=== PATIENT | male | born 1950 | race Caucasian/White ===

== ENCOUNTER 2022-04-03 15:20 | Inpatient (IN) | payer OTHER ==
[~2022-04-03] VITALS: Ht 182.9 cm; Wt 96.6 kg
[2022-04-03 16:10] LABS: Hematocrit 34.4 % (41.0-53.0); Hemoglobin 11.4 g/dL (13.5-17.5); Mean Corpuscular Hemoglobin 29.9 pg (28.0-32.0); Mean Corpuscular Hgb Conc. 33.1 g/dL (32.0-36.0); Mean Corpuscular Volume 90.4 fL (80.0-100.0); Red Blood Cells 3.81 10^6/uL (4.5-5.90)
[2022-04-03 16:15] LABS: Basophils % (manual) 0 (0.0-2.0); Blast Cells 0; Myelocytes % 0; Promyelocytes % 0; Reactive Lymphocytes 0
[2022-04-03 16:23] LABS: Albumin 3.1 g/dL (3.4-5.0); Calcium 9.1 mg/dL (8.5-10.1); Potassium 3.6 mmol/L (3.5-5.1)
[2022-04-03 16:31] LABS: BUN/Creatinine Ratio 17.4; Total Protein 7.5 g/dL (6.4-8.2)
[2022-04-03 16:39] LABS: INR 1.04 (0.9-1.15); Partial Thromboplastin Time 23.1 sec (24.6-33.4)
[2022-04-03 16:48] LABS: Band Neutrophils % (manual) 8; Eosinophils % (manual) 2 (0-7); Lymphocytes % (manual) 6 (10.0-50.0); Metamyelocytes % 1; Monocytes % (manual) 4 (0-12)
[2022-04-03] MEDS ORDERED: SODIUM CHLORIDE 0.9% 1,000 ML IV ONE (19:00)
[2022-04-03] MEDS ORDERED: HYDROmorphone HCL 2 MG/ML VL/or syr IV ONE (19:00)
[2022-04-03] MEDS ORDERED: METOCLOPRAMIDE HCL 5MG/ml INJ 2ml VIAL IV ONE (19:00)
[2022-04-03] MEDS ORDERED: SODIUM CHLORIDE 0.9% 500 ML IVB ONE (19:00)
[2022-04-03 19:17] LABS: Hematocrit 31.5 % (41.0-53.0); Hemoglobin 10.4 g/dL (13.5-17.5); Mean Corpuscular Hemoglobin 29.6 pg (28.0-32.0); Mean Corpuscular Volume 89.9 fL (80.0-100.0); Red Blood Cells 3.51 10^6/uL (4.5-5.90); Red Cell Distribution Width 14.8 % (11.8-14.3); White Blood Cell 15.1 10^3/uL (4.4-10.8)
[2022-04-03 19:20] LABS: Basophils % (manual) 0 (0.0-2.0); Blast Cells 0; Metamyelocytes % 0; Myelocytes % 0; Promyelocytes % 0; Reactive Lymphocytes 0
[2022-04-03 19:24] LABS: Albumin 2.9 g/dL (3.4-5.0); Calcium 8.7 mg/dL (8.5-10.1); Magnesium 1.6 mg/dL (1.6-2.6); Potassium 3.1 mmol/L (3.5-5.1)
[2022-04-03 19:25] LABS: INR 1.07 (0.9-1.15); Partial Thromboplastin Time 24.8 sec (24.6-33.4)
[2022-04-03 19:27] LABS: Bilirubin, Total 3.6 mg/dL (0.2-1.0); Total Protein 6.5 g/dL (6.4-8.2)
[2022-04-03 19:33] LABS: BUN/Creatinine Ratio 15.9
[2022-04-03 20:02] LABS: Band Neutrophils % (manual) 12; Eosinophils % (manual) 1 (0-7); Lymphocytes % (manual) 3 (10.0-50.0); Monocytes % (manual) 5 (0-12)
[2022-04-03] MEDS ORDERED: ACETAMINOPHEN 500 MG TAB PO ONE (20:15)
[2022-04-04 01:51] LABS: Urine Bacteria NONE SEEN /hpf (None Seen); Urine Blood Negative /uL (Negative); Urine Hyaline Cast FEW /lpf (0 - 2); Urine Specific Gravity 1.019 (1.001-1.035); Urine WBC 23 /hpf (0 - 3)
[2022-04-04] MEDS ORDERED: HYDROmorphone HCL 2 MG/ML VL/or syr IV ONE (04:15)
[2022-04-04] MEDS ORDERED: HYDROmorphone HCL 2 MG/ML VL/or syr IV PRN (07:30)
[2022-04-04] MEDS ORDERED: DEXTROSE (50%) 50ML SYRG IV PRN (07:30)
[2022-04-04] MEDS ORDERED: IBUPROFEN 600 MG TAB PO PRN (07:30)
[2022-04-04] MEDS ORDERED: ONDANSETRON HCL 4 MG/2 ML VIAL IV PRN (07:30)
[2022-04-04] MEDS ORDERED: ALBUMIN 25% 100 ML IV ONE (07:30)
[2022-04-04] MEDS ORDERED: metroNIDAZOLE 500MG/100ML 100 ML IV ONE (07:30)
[2022-04-04] MEDS ORDERED: DOCUSATE SOD 100 MG CAP PO PRN (07:30)
[2022-04-04] MEDS ORDERED: METOCLOPRAMIDE HCL 5MG/ml INJ 2ml VIAL IV PRN (07:30)
[2022-04-04] MEDS ORDERED: MORPHINE SULFATE INJ 2 MG/ml SYRG IV PRN ×2 (07:30→08:15)
[2022-04-04] MEDS ORDERED: POTASSIUM CHL 20 Meq TABLET PO ONE (07:45)
[2022-04-04] MEDS ORDERED: NITROGLYCERIN 0.4 MG SL TAB SL PRN (08:15)
[2022-04-04] MEDS: SODIUM CHLORIDE 0.9% 1,000 ML IV SCH (08:37)
[2022-04-04 08:38] LABS: Mean Corpuscular Hgb Conc. 33.1 g/dL (32.0-36.0); Red Cell Distribution Width 15.1 % (11.8-14.3)
[2022-04-04 08:41] LABS: Hemoglobin 9.9 g/dL (13.5-17.5); Mean Corpuscular Hemoglobin 29.9 pg (28.0-32.0); Mean Corpuscular Volume 90.3 fL (80.0-100.0); Red Blood Cells 3.32 10^6/uL (4.5-5.90)
[2022-04-04 08:47] LABS: Basophils % (manual) 0 (0.0-2.0); Blast Cells 0; Eosinophils % (manual) 0 (0-7); Promyelocytes % 0; Reactive Lymphocytes 0
[2022-04-04] MEDS ORDERED: cefTRIAXone 1GM/50ML D5W 50 ML IV SCH (09:00)
[2022-04-04 09:09] LABS: Albumin 2.6 g/dL (3.4-5.0); Calcium 8.6 mg/dL (8.5-10.1); Potassium 4.1 mmol/L (3.5-5.1)
[2022-04-04 09:13] LABS: BUN/Creatinine Ratio 18.8; Bilirubin, Total 4.6 mg/dL (0.2-1.0); Total Protein 6.8 g/dL (6.4-8.2)
[2022-04-04] MEDS: FAMOTIDINE (10MG/ML) 2ML VL IV SCH (09:28)
[2022-04-04] MEDS ORDERED: APIXABAN 5 MG TAB PO SCH (10:00)
[2022-04-04] MEDS: MEROPENEM 1GM IVPB 100 ML IV SCH ×2 (10:49→21:58)
[2022-04-04] MEDS: ACCU-CHEK COMFORT CURVE STRIP VI SCH ×3 (12:43→23:30)
[2022-04-04] MEDS: InsuLIN REG 1unit/0.01ml Soln (100units/ml) SC SCH ×3 (12:49→23:32)
[2022-04-04 13:19] VITALS: BP 108/68
[2022-04-04] MEDS ORDERED: metroNIDAZOLE 500MG/100ML 100 ML IV SCH (14:00)
[2022-04-04 15:59] LABS: Band Neutrophils % (manual) 18; Lymphocytes % (manual) 8 (10.0-50.0); Metamyelocytes % 2; Monocytes % (manual) 2 (0-12); Myelocytes % 1
[2022-04-04 16:00] VITALS: BP 117/68
[2022-04-04] MEDS ORDERED: OMEP20TA PO (16:42)
[2022-04-04] MEDS ORDERED: LISI-716 PO (16:42)
[2022-04-04] MEDS ORDERED: METF-370 PO (16:42)
[2022-04-04] MEDS ORDERED: APIX5TAB PO (16:42)
[2022-04-04] MEDS ORDERED: HYDR-4924 PO (18:22)
[2022-04-04] MEDS ORDERED: URSO300C9 PO (18:22)
[2022-04-04 21:49] VITALS: BP 100/38
[2022-04-05] MEDS: SODIUM CHLORIDE 0.9% 1,000 ML IV SCH (00:10)
[2022-04-05] MEDS: ACCU-CHEK COMFORT CURVE STRIP VI SCH ×4 (05:44→23:41)
[2022-04-05] MEDS: InsuLIN REG 1unit/0.01ml Soln (100units/ml) SC SCH ×4 (05:44→23:39)
[2022-04-05 05:46] VITALS: BP 120/65
[2022-04-05 05:49] LABS: Basophils # (auto) 0 10 ^3/uL (0-0.2); Basophils % (auto) 0.1 % (0.0-2.0); Eosinophils # (auto) 0.3 10 ^3/uL (0-0.8); Eosinophils % (auto) 1.5 % (0.0-7.0); Hematocrit 29.3 % (41.0-53.0); Hemoglobin 9.8 g/dL (13.5-17.5); Lymphocytes # (auto) 0.9 10 ^3/uL (0.4-5.4); Lymphocytes % (auto) 4.3 % (10.0-50.0); Mean Corpuscular Hemoglobin 30.3 pg (28.0-32.0); Mean Corpuscular Hgb Conc. 33.3 g/dL (32.0-36.0); Mean Corpuscular Volume 90.8 fL (80.0-100.0); Monocytes # (auto) 0.5 10 ^3/uL (0-1.3); Monocytes % (auto) 2.7 % (0.0-12.0); Neutrophils # (auto) 18.4 10 ^3/uL (1.6-8.6); Neutrophils % (auto) 91.4 % (37.0-80.0); Red Blood Cells 3.23 10^6/uL (4.5-5.90); Red Cell Distribution Width 15.4 % (11.8-14.3); White Blood Cell 20.1 10^3/uL (4.4-10.8)
[2022-04-05 06:09] LABS: Potassium 3.7 mmol/L (3.5-5.1)
[2022-04-05 06:16] LABS: Albumin 2.5 g/dL (3.4-5.0); BUN/Creatinine Ratio 26.7; Calcium 8.6 mg/dL (8.5-10.1); Total Protein 6.5 g/dL (6.4-8.2)
[2022-04-05 08:00] VITALS: BP 129/69
[2022-04-05] MEDS: FAMOTIDINE (10MG/ML) 2ML VL IV SCH (09:42)
[2022-04-05] MEDS: MEROPENEM 1GM IVPB 100 ML IV SCH ×2 (10:38→21:36)
[2022-04-05 12:00] VITALS: BP 121/63
[2022-04-05 16:00] VITALS: BP 124/66
[2022-04-05] MEDS ORDERED: MEROPENEM 1GM IVPB 100 ML IV SCH (19:00)
[2022-04-05] MEDS: APIXABAN 5 MG TAB PO SCH (21:36)
[2022-04-05 22:00] VITALS: BP 131/74
[2022-04-06 05:00] VITALS: BP 128/74
[2022-04-06] MEDS: MEROPENEM 1GM IVPB 100 ML IV SCH ×3 (05:13→21:34)
[2022-04-06] MEDS: InsuLIN REG 1unit/0.01ml Soln (100units/ml) SC SCH ×3 (05:31→18:10)
[2022-04-06] MEDS: ACCU-CHEK COMFORT CURVE STRIP VI SCH ×3 (05:31→17:40)
[2022-04-06 09:00] VITALS: BP 113/64
[2022-04-06] MEDS: FAMOTIDINE (10MG/ML) 2ML VL IV SCH (10:26)
[2022-04-06] MEDS: APIXABAN 5 MG TAB PO SCH ×2 (10:26→21:34)
[2022-04-06] MEDS ORDERED: FUROSEMIDE 20 MG/2 ML VIAL IV ONE (11:30)
[2022-04-06] MEDS ORDERED: FUROSEMIDE 40 MG/4 ML VIAL IV ONE (11:30)
[2022-04-06] MEDS ORDERED: DOXYCYCLINE 100 MG TAB/CAP PO ONE (11:30)
[2022-04-06 13:07] VITALS: BP 127/67
[2022-04-06 13:32] LABS: Basophils # (auto) 0.1 10 ^3/uL (0-0.2); Basophils % (auto) 0.8 % (0.0-2.0); Eosinophils # (auto) 0.3 10 ^3/uL (0-0.8); Eosinophils % (auto) 2.6 % (0.0-7.0); Hematocrit 33.7 % (41.0-53.0); Lymphocytes # (auto) 0.9 10 ^3/uL (0.4-5.4); Lymphocytes % (auto) 7.4 % (10.0-50.0); Mean Corpuscular Hemoglobin 29.8 pg (28.0-32.0); Mean Corpuscular Hgb Conc. 32.6 g/dL (32.0-36.0); Mean Corpuscular Volume 91.2 fL (80.0-100.0); Monocytes # (auto) 0.5 10 ^3/uL (0-1.3); Monocytes % (auto) 3.9 % (0.0-12.0); Neutrophils # (auto) 10.9 10 ^3/uL (1.6-8.6); Neutrophils % (auto) 85.3 % (37.0-80.0); Nucleated Red Blood Cells % 0.1 %; Red Blood Cells 3.69 10^6/uL (4.5-5.90); Red Cell Distribution Width 14.8 % (11.8-14.3); White Blood Cell 12.8 10^3/uL (4.4-10.8)
[2022-04-06 15:20] LABS: Albumin 2.8 g/dL (3.4-5.0); Calcium 8.6 mg/dL (8.5-10.1); Potassium 3.7 mmol/L (3.5-5.1)
[2022-04-06 15:22] LABS: Bilirubin, Total 2.2 mg/dL (0.2-1.0); Total Protein 7.5 g/dL (6.4-8.2)
[2022-04-06 17:00] VITALS: BP 110/55
[2022-04-06 22:00] VITALS: BP 122/67
[2022-04-06] MEDS ORDERED: DOXYCYCLINE 100 MG TAB/CAP PO SCH (22:00)
[2022-04-07] MEDS: ACCU-CHEK COMFORT CURVE STRIP VI SCH ×5 (00:01→23:42)
[2022-04-07] MEDS: InsuLIN REG 1unit/0.01ml Soln (100units/ml) SC SCH ×5 (00:02→23:42)
[2022-04-07 05:00] VITALS: BP 118/69
[2022-04-07] MEDS: MEROPENEM 1GM IVPB 100 ML IV SCH (05:29)
[2022-04-07 09:00] VITALS: BP 115/61
[2022-04-07] MEDS ORDERED: FUROSEMIDE 40 MG/4 ML VIAL IV SCH (10:00)
[2022-04-07] MEDS: APIXABAN 5 MG TAB PO SCH ×2 (10:18→21:05)
[2022-04-07] MEDS: FAMOTIDINE (10MG/ML) 2ML VL IV SCH (10:19)
[2022-04-07] MEDS ORDERED: FUROSEMIDE 20 MG TAB PO ONE (12:15)
[2022-04-07 13:00] VITALS: BP 138/82
[2022-04-07 16:54] VITALS: BP 149/65
[2022-04-07 22:00] VITALS: BP 128/69
[2022-04-08] VITALS (7 sets, daily range): BP systolic 113–131; BP diastolic 64–76
[2022-04-08] MEDS: ACCU-CHEK COMFORT CURVE STRIP VI SCH ×4 (05:13→23:35)
[2022-04-08] MEDS: InsuLIN REG 1unit/0.01ml Soln (100units/ml) SC SCH ×4 (05:13→23:36)
[2022-04-08 06:10] LABS: Basophils # (auto) 0.1 10 ^3/uL (0-0.2); Basophils % (auto) 0.6 % (0.0-2.0); Eosinophils # (auto) 0.5 10 ^3/uL (0-0.8); Eosinophils % (auto) 4.8 % (0.0-7.0); Hematocrit 29.9 % (41.0-53.0); Lymphocytes # (auto) 1.2 10 ^3/uL (0.4-5.4); Lymphocytes % (auto) 12.9 % (10.0-50.0); Mean Corpuscular Hemoglobin 30.5 pg (28.0-32.0); Mean Corpuscular Hgb Conc. 33.5 g/dL (32.0-36.0); Mean Corpuscular Volume 91.1 fL (80.0-100.0); Monocytes # (auto) 1.2 10 ^3/uL (0-1.3); Monocytes % (auto) 12.3 % (0.0-12.0); Neutrophils # (auto) 6.7 10 ^3/uL (1.6-8.6); Neutrophils % (auto) 69.4 % (37.0-80.0); Red Blood Cells 3.28 10^6/uL (4.5-5.90); Red Cell Distribution Width 14.6 % (11.8-14.3); White Blood Cell 9.7 10^3/uL (4.4-10.8)
[2022-04-08 06:25] LABS: Albumin 2.1 g/dL (3.4-5.0); Calcium 8.4 mg/dL (8.5-10.1); Potassium 3.8 mmol/L (3.5-5.1)
[2022-04-08 06:35] LABS: BUN/Creatinine Ratio 20.5; Bilirubin, Total 1.6 mg/dL (0.2-1.0); Total Protein 6.3 g/dL (6.4-8.2)
[2022-04-08] MEDS: FAMOTIDINE (10MG/ML) 2ML VL IV SCH (09:50)
[2022-04-08] MEDS: cefTRIAXone 1GM/50ML D5W 50 ML IV SCH (09:50)
[2022-04-08] MEDS: APIXABAN 5 MG TAB PO SCH ×2 (09:50→21:48)
[2022-04-08] MEDS: FUROSEMIDE 20 MG TAB PO SCH (09:51)
[2022-04-08] MEDS ORDERED: INSULIN LANTUS (GLARGINE) 1 /0.01ml (100units/ml) SC ONE (13:00)
[2022-04-09 05:00] VITALS: BP 119/68
[2022-04-09] MEDS: ACCU-CHEK COMFORT CURVE STRIP VI SCH ×3 (05:53→18:23)
[2022-04-09] MEDS: InsuLIN REG 1unit/0.01ml Soln (100units/ml) SC SCH ×3 (05:54→18:00)
[2022-04-09 08:00] VITALS: BP 124/69
[2022-04-09] MEDS: cefTRIAXone 1GM/50ML D5W 50 ML IV SCH (08:45)
[2022-04-09 08:49] VITALS: BP 124/69
[2022-04-09] MEDS: APIXABAN 5 MG TAB PO SCH ×2 (10:07→22:07)
[2022-04-09] MEDS: FAMOTIDINE (10MG/ML) 2ML VL IV SCH (10:07)
[2022-04-09] MEDS: FUROSEMIDE 20 MG TAB PO SCH (10:09)
[2022-04-09 12:45] VITALS: BP 124/69
[2022-04-09 16:57] VITALS: BP 133/65
[2022-04-09 22:00] VITALS: BP 126/69
[2022-04-10] MEDS: ACCU-CHEK COMFORT CURVE STRIP VI SCH ×4 (00:57→17:31)
[2022-04-10] MEDS: InsuLIN REG 1unit/0.01ml Soln (100units/ml) SC SCH ×4 (00:59→17:31)
[2022-04-10 05:51] VITALS: BP 123/64
[2022-04-10 06:35] LABS: Basophils # (auto) 0.1 10 ^3/uL (0-0.2); Basophils % (auto) 0.7 % (0.0-2.0); Eosinophils # (auto) 0.5 10 ^3/uL (0-0.8); Hemoglobin 10.1 g/dL (13.5-17.5); Lymphocytes # (auto) 1.3 10 ^3/uL (0.4-5.4); Lymphocytes % (auto) 14.5 % (10.0-50.0); Mean Corpuscular Hemoglobin 30.4 pg (28.0-32.0); Mean Corpuscular Hgb Conc. 33.8 g/dL (32.0-36.0); Mean Corpuscular Volume 89.9 fL (80.0-100.0); Monocytes # (auto) 0.8 10 ^3/uL (0-1.3); Monocytes % (auto) 9.2 % (0.0-12.0); Neutrophils # (auto) 6.1 10 ^3/uL (1.6-8.6); Neutrophils % (auto) 69.6 % (37.0-80.0); Red Blood Cells 3.33 10^6/uL (4.5-5.90); Red Cell Distribution Width 14.5 % (11.8-14.3); White Blood Cell 8.8 10^3/uL (4.4-10.8)
[2022-04-10 06:55] LABS: Potassium 4.1 mmol/L (3.5-5.1)
[2022-04-10 07:06] LABS: Albumin 2.3 g/dL (3.4-5.0); BUN/Creatinine Ratio 13.9; Bilirubin, Total 1.4 mg/dL (0.2-1.0); Calcium 8.5 mg/dL (8.5-10.1); Magnesium 2.3 mg/dL (1.6-2.6); Total Protein 6.4 g/dL (6.4-8.2)
[2022-04-10] MEDS: cefTRIAXone 1GM/50ML D5W 50 ML IV SCH (07:58)
[2022-04-10 08:00] VITALS: BP 129/70
[2022-04-10 09:00] VITALS: BP 129/70
[2022-04-10] MEDS: APIXABAN 5 MG TAB PO SCH ×2 (09:10→21:19)
[2022-04-10] MEDS: FUROSEMIDE 20 MG TAB PO SCH (09:10)
[2022-04-10] MEDS: FAMOTIDINE (10MG/ML) 2ML VL IV SCH (09:10)
[2022-04-10 13:00] VITALS: BP 107/72
[2022-04-10 17:01] VITALS: BP 118/70
[2022-04-10 21:44] VITALS: BP 120/67
[2022-04-11] MEDS: ACCU-CHEK COMFORT CURVE STRIP VI SCH ×3 (00:11→12:10)
[2022-04-11] MEDS: InsuLIN REG 1unit/0.01ml Soln (100units/ml) SC SCH ×3 (00:12→12:10)
[2022-04-11 05:00] VITALS: BP 125/66
[2022-04-11 08:00] VITALS: BP 129/70
[2022-04-11] MEDS: cefTRIAXone 1GM/50ML D5W 50 ML IV SCH (08:43)
[2022-04-11 08:53] VITALS: BP_SYST 122; BP_SYST 148; BP_DIAS 63; BP_DIAS 81
[2022-04-11] MEDS: APIXABAN 5 MG TAB PO SCH (10:02)
[2022-04-11] MEDS: FAMOTIDINE (10MG/ML) 2ML VL IV SCH (10:02)
[2022-04-11] MEDS: FUROSEMIDE 20 MG TAB PO SCH (10:04)
[2022-04-11] MEDS ORDERED: CEPH-511 PO ×2 (12:29→12:31)
[2022-04-11] MEDS ORDERED: METR500T PO (12:29)
[2022-04-11 13:00] VITALS: BP 114/61
[2022-04-11 13:03] VITALS: BP 122/63
== END 2022-04-11 15:07 | disposition home or self-care (01) | DRG 871 ==
LOC: EDBD 15:20 → ER 15:24 → OVERFLOW 04-04 08:14 → EAST 04-04 13:17
PROVIDERS: ADMIT Nurse Practitioner Family; ATTEND Internal Medicine
DX: A41.50 Gram-negative sepsis, unspecified (principal); J18.9 Pneumonia, unspecified organism; J96.01 Acute respiratory failure with hypoxia; K85.10 Biliary acute pancreatitis without necrosis or infection; C25.0 Malignant neoplasm of head of pancreas; E44.0 Moderate protein-calorie malnutrition; C17.0 Malignant neoplasm of duodenum; K83.09 Other cholangitis; N17.9 Acute kidney failure, unspecified; J98.11 Atelectasis; E11.22 Type 2 diabetes mellitus with diabetic chronic kidney disease; E87.6 Hypokalemia; K72.90 Hepatic failure, unspecified without coma; Z20.822 Contact with and (suspected) exposure to COVID-19; N18.30 Chronic kidney disease, stage 3 unspecified; D64.9 Anemia, unspecified; B96.1 Klebsiella pneumoniae [K. pneumoniae] as the cause of diseases classified elsewhere; E11.65 Type 2 diabetes mellitus with hyperglycemia; H91.90 Unspecified hearing loss, unspecified ear; I48.91 Unspecified atrial fibrillation; R65.20 Severe sepsis without septic shock; Z85.068 Personal history of other malignant neoplasm of small intestine; Z95.0 Presence of cardiac pacemaker; Z85.07 Personal history of malignant neoplasm of pancreas; Z68.30 Body mass index [BMI] 30.0-30.9, adult
CPT/HCPCS: 36415; 71045; 71046; 74176; 80053; 81001; 82962; 83036; 83690; 83735; 83880; 84484; 85007; 85025; 85027; 85610; 85730; 87040; 87077; 87086; 87186; 93005; 96361; 96374; 96375; 99291; G0378; J0696; J1815; J2185; J3490; P9047

== ENCOUNTER → 2022-09-14 | Outpatient (CLI) | payer OTHER ==
[~2022-09-14] MED LIST: APIX5TAB PO; CEPH-511 PO; HYDR-4924 PO; LISI-716 PO; METF-370 PO; METR500T PO; OMEP20TA PO; URSO300C9 PO
[2022-09-14 08:04] LABS: Basophils # (auto) 0 10 ^3/uL (0-0.2); Basophils % (auto) 0.2 % (0.0-2.0); Eosinophils # (auto) 0 10 ^3/uL (0-0.8); Eosinophils % (auto) 0.1 % (0.0-7.0); Hematocrit 32.8 % (41.0-53.0); Hemoglobin 11.1 g/dL (13.5-17.5); Lymphocytes # (auto) 0.9 10 ^3/uL (0.4-5.4); Lymphocytes % (auto) 12.8 % (10.0-50.0); Mean Corpuscular Hemoglobin 27.5 pg (28.0-32.0); Mean Corpuscular Hgb Conc. 33.8 g/dL (32.0-36.0); Mean Corpuscular Volume 81.4 fL (80.0-100.0); Monocytes # (auto) 0.5 10 ^3/uL (0-1.3); Monocytes % (auto) 6.6 % (0.0-12.0); Neutrophils # (auto) 5.9 10 ^3/uL (1.6-8.6); Neutrophils % (auto) 80.3 % (37.0-80.0); Nucleated Red Blood Cells % 0.1 %; Red Blood Cells 4.03 10^6/uL (4.5-5.90); Red Cell Distribution Width 16.3 % (11.8-14.3); White Blood Cell 7.3 10^3/uL (4.4-10.8)
[2022-09-14 08:16] LABS: INR 1.05 (0.9-1.15)
[2022-09-14 08:30] LABS: Albumin 3.5 g/dL (3.4-5.0); Calcium 9.5 mg/dL (8.5-10.1); Magnesium 2.1 mg/dL (1.6-2.6); Potassium 3.8 mmol/L (3.5-5.1)
[2022-09-14 08:34] LABS: BUN/Creatinine Ratio 26.1; Bilirubin, Total 0.3 mg/dL (0.2-1.0)
== END | disposition home or self-care (01) ==
LOC: LAB 07:45
PROVIDERS: ATTEND Internal Medicine
DX: C24.0 Malignant neoplasm of extrahepatic bile duct (principal); E11.9 Type 2 diabetes mellitus without complications; Z79.899 Other long term (current) drug therapy; Z85.00 Personal history of malignant neoplasm of unspecified digestive organ
CPT/HCPCS: 36415; 80053; 82306; 82378; 83615; 83735; 85025; 85610; 86301

== ENCOUNTER → 2023-06-20 | Outpatient (CLI) | payer OTHER ==
[~2023-06-20] MED LIST changes: +CIP03OS RIGHTEYE; -LISI-716 PO; +LISI10TA34 PO; +URSO300C2 PO; -URSO300C9 PO
[2023-06-20 08:03] LABS: Basophils # (auto) 0 10 ^3/uL (0-0.2); Basophils % (auto) 0.4 % (0.0-2.0); Eosinophils # (auto) 0.1 10 ^3/uL (0-0.8); Hematocrit 30.8 % (41.0-53.0); Hemoglobin 10.2 g/dL (13.5-17.5); Lymphocytes # (auto) 0.4 10 ^3/uL (0.4-5.4); Lymphocytes % (auto) 14.9 % (10.0-50.0); Mean Corpuscular Hemoglobin 32.5 pg (28.0-32.0); Mean Corpuscular Hgb Conc. 33.1 g/dL (32.0-36.0); Mean Corpuscular Volume 98.2 fL (80.0-100.0); Monocytes # (auto) 0.2 10 ^3/uL (0-1.3); Monocytes % (auto) 9.8 % (0.0-12.0); Neutrophils # (auto) 1.8 10 ^3/uL (1.6-8.6); Neutrophils % (auto) 71.9 % (37.0-80.0); Red Blood Cells 3.13 10^6/uL (4.5-5.90); Red Cell Distribution Width 16.2 % (11.8-14.3); White Blood Cell 2.5 10^3/uL (4.4-10.8)
[2023-06-20 08:26] LABS: Urine Bacteria NONE SEEN /hpf (None Seen); Urine Blood Negative /uL (Negative); Urine Clarity Clear (Clear); Urine Color Yellow (Yellow); Urine Protein, UAD Negative (Negative); Urine Urobilinogen Normal (Negative); Urine WBC 1 /hpf (0 - 3); Urine pH 5.5 (5.0-8.0)
[2023-06-20 08:32] LABS: Alanine Aminotransferase 23 U/L (7-40); Albumin 4.2 g/dL (3.2-4.8); Alkaline Phosphatase 121 U/L (46-116); Anion Gap 7 (5-15); Aspartate Aminotransferase 41 U/L (13-40); Blood Urea Nitrogen 15 mg/dL (9-23); Calcium 9.3 mg/dL (8.5-10.1); Carbon Dioxide 26 mmol/L (20-30); Chloride 106 mmol/L (98-107); Cholesterol 115 mg/dL (< 200); Glucose 116 mg/dL (74-106); LDL Cholesterol 29 mg/dL (< 100); Potassium 4.2 mmol/L (3.5-5.1); Sodium 139 mmol/L (136-145); Triglycerides 48 mg/dL (< 150)
[2023-06-20 08:33] LABS: Bilirubin, Total 0.6 mg/dL (0.2-1.0); HDL Cholesterol 71 mg/dL (40-59)
[2023-06-20 09:10] LABS: Erythrocyte Sedimentation Rate 18 mm/hr (0-20)
[2023-06-20 11:27] LABS: Prostate Specific Antigen 0.52 ng/mL (0.0-4.0)
[2023-06-20 11:32] LABS: Free T4 (Free Thyroxine) 0.93 ng/dL (0.89-1.76)
[2023-06-20 15:26] LABS: Magnesium 2.3 mg/dL (1.6-2.6)
== END | disposition home or self-care (01) ==
LOC: LAB 07:41
PROVIDERS: ATTEND Internal Medicine
DX: C25.9 Malignant neoplasm of pancreas, unspecified (principal); E11.9 Type 2 diabetes mellitus without complications; I48.0 Paroxysmal atrial fibrillation; R35.1 Nocturia; N40.0 Benign prostatic hyperplasia without lower urinary tract symptoms
CPT/HCPCS: 36415; 80053; 80061; 81001; 82043; 83036; 83735; 84153; 84439; 84443; 85025; 85652

== ENCOUNTER 2023-12-19 19:46 | Inpatient (IN) | payer OTHER ==
[~2023-12-19] VITALS: Ht 175.3 cm; Wt 65.5 kg
[2023-12-19 22:24] LABS: Basophils # (auto) 0 10 ^3/uL (0-0.2); Eosinophils # (auto) 0 10 ^3/uL (0-0.8); Hemoglobin 8.2 g/dL (13.5-17.5); Lymphocytes # (auto) 0.3 10 ^3/uL (0.4-5.4); Monocytes # (auto) 0.7 10 ^3/uL (0-1.3)
[2023-12-19 22:26] LABS: Basophils % (auto) 0.3 % (0.0-2.0); Eosinophils % (auto) 0.6 % (0.0-7.0); Hematocrit 24.9 % (41.0-53.0); Lymphocytes % (auto) 5.2 % (10.0-50.0); Mean Corpuscular Hemoglobin 28.8 pg (28.0-32.0); Mean Corpuscular Hgb Conc. 33.1 g/dL (32.0-36.0); Mean Corpuscular Volume 87.1 fL (80.0-100.0); Neutrophils # (auto) 4.1 10 ^3/uL (1.6-8.6); Neutrophils % (auto) 79.9 % (37.0-80.0); Red Blood Cells 2.85 10^6/uL (4.5-5.90); Red Cell Distribution Width 15.7 % (11.8-14.3); White Blood Cell 5.1 10^3/uL (4.4-10.8)
[2023-12-19 22:41] LABS: Alanine Aminotransferase 35 U/L (7-40); Albumin 3.7 g/dL (3.2-4.8); Alkaline Phosphatase 398 U/L (46-116); Anion Gap 9 (5-15); Aspartate Aminotransferase 42 U/L (13-40); BUN/Creatinine Ratio 35.5 (10.0-20.0); Bilirubin, Total 2.1 mg/dL (0.2-1.0); Blood Urea Nitrogen 39 mg/dL (9-23); Calcium 9.2 mg/dL (8.7-10.4); Carbon Dioxide 19 mmol/L (20-30); Chloride 99 mmol/L (98-107); Glucose 209 mg/dL (74-106); Potassium 4.5 mmol/L (3.5-5.1); Sodium 127 mmol/L (136-145)
[2023-12-19 22:42] LABS: Total Protein 7.9 g/dL (5.7-8.2)
[2023-12-20 01:11] LABS: INR 1.39 (0.9-1.15); Prothrombin Time 14.4 sec (9.3-11.8)
[2023-12-20] MEDS: IOHEXOL 350 MG/ML 100ML IJ ONE (01:22)
[2023-12-20] MEDS: VANCOMYCIN 1GM/200ML 200 ML IV ONE (04:10)
[2023-12-20 04:30] VITALS: PULSE 64; RESP 14; O2SAT 98
[2023-12-20] MEDS: PIPERACILLIN-TAZOB 3.375GM 100 ML IV ONE (06:26)
[2023-12-20] MEDS ORDERED: InsuLIN REG 1unit/0.01ml Soln (100units/ml) SC SCH ×5 (07:00→22:00)
[2023-12-20] MEDS ORDERED: ACCU-CHEK COMFORT CURVE STRIP VI SCH ×2 (07:00→07:15)
[2023-12-20] MEDS ORDERED: SODIUM CHLORIDE 0.9% 500 ML IV ONE (07:00)
[2023-12-20] MEDS ORDERED: HYDROcodone-ACET 5/325MG TAB PO PRN ×2 (07:00→07:15)
[2023-12-20] MEDS ORDERED: SODIUM CHLORIDE 0.9% 1,000 ML IV SCH ×2 (07:00→07:15)
[2023-12-20] MEDS ORDERED: DEXTROSE (50%) 50ML SYRG IV PRN ×4 (07:00→15:30)
[2023-12-20] MEDS ORDERED: ACETAMINOPHEN 325 MG TAB PO PRN ×3 (07:00→07:45)
[2023-12-20] MEDS ORDERED: ONDANSETRON HCL 4 MG/2 ML VIAL IV PRN ×3 (07:00→07:45)
[2023-12-20] MEDS: SODIUM CHLORIDE 0.9% 500 ML IV ONE (07:15)
[2023-12-20] MEDS: SODIUM CHLORIDE 0.9% 1,000 ML IV SCH (07:45)
[2023-12-20] MEDS ORDERED: cefTRIAXone 1GM/50ML D5W 50 ML IV SCH ×2 (09:00)
[2023-12-20] MEDS: cefTRIAXone 1GM/50ML D5W 50 ML IV SCH (09:24)
[2023-12-20] MEDS: URSODIOL 300 MG CAP PO SCH (09:54)
[2023-12-20] MEDS ORDERED: URSODIOL 300 MG PO SCH ×3 (10:00)
[2023-12-20] MEDS: LISINOPRIL 5 MG TAB PO SCH (10:00)
[2023-12-20] MEDS: APIXABAN 5 MG TAB PO SCH (10:00)
[2023-12-20] MEDS ORDERED: APIXABAN 5 MG TAB PO SCH ×2 (10:00)
[2023-12-20] MEDS ORDERED: LISINOPRIL 5 MG TAB PO SCH ×2 (10:00)
[2023-12-20] MEDS: ENOXAPARIN SOD 100 MG/1 ML SYRINGE SC ONE (10:32)
[2023-12-20] MEDS: InsuLIN REG 1unit/0.01ml Soln (100units/ml) SC SCH ×2 (10:59→17:02)
[2023-12-20] MEDS: ACCU-CHEK COMFORT CURVE STRIP VI SCH ×2 (10:59→17:02)
[2023-12-20] MEDS ORDERED: MORPHINE SULFATE INJ 2 MG/ml SYRG IV PRN (15:30)
[2023-12-20] MEDS: LIDOCAINE 5% TOPICAL PATCH TOP ONE (15:30)
[2023-12-20 16:37] LABS: Magnesium 2.2 mg/dL (1.6-2.6)
[2023-12-20 16:39] LABS: Phosphorus 3.3 mg/dL (2.4-5.1)
[2023-12-20 19:30] VITALS: PULSE 63; RESP 18; O2SAT 95
[2023-12-20 22:20] VITALS: BP 125/59; PULSE 67; RESP 18; TEMP 99.7; O2SAT 95
[2023-12-20] MEDS: ENOXAPARIN SOD 100 MG/1 ML SYRINGE SC SCH (23:21)
[2023-12-21] VITALS (16 sets, daily range): BP systolic 104–141; BP diastolic 51–62; PULSE 62–94; RESP 17–20; TEMP 97.6–98.6; O2SAT 93–100
[2023-12-21] MEDS ORDERED: TAMS-35 PO (03:08)
[2023-12-21] MEDS: HYDROcodone-ACET 5/325MG TAB PO PRN (05:34)
[2023-12-21 06:58] LABS: Basophils # (auto) 0 10 ^3/uL (0-0.2); Basophils % (auto) 0.6 % (0.0-2.0); Eosinophils # (auto) 0 10 ^3/uL (0-0.8); Eosinophils % (auto) 0.2 % (0.0-7.0); Hematocrit 24.1 % (41.0-53.0); Hemoglobin 7.9 g/dL (13.5-17.5); Lymphocytes # (auto) 0.4 10 ^3/uL (0.4-5.4); Lymphocytes % (auto) 8.5 % (10.0-50.0); Mean Corpuscular Hemoglobin 29.2 pg (28.0-32.0); Mean Corpuscular Hgb Conc. 32.7 g/dL (32.0-36.0); Mean Corpuscular Volume 89.3 fL (80.0-100.0); Monocytes # (auto) 0.7 10 ^3/uL (0-1.3); Monocytes % (auto) 13.6 % (0.0-12.0); Neutrophils % (auto) 77.1 % (37.0-80.0); Red Cell Distribution Width 16.3 % (11.8-14.3); White Blood Cell 5.2 10^3/uL (4.4-10.8)
[2023-12-21 07:15] LABS: Alanine Aminotransferase 29 U/L (7-40); Alkaline Phosphatase 320 U/L (46-116); Anion Gap 8 (5-15); Aspartate Aminotransferase 46 U/L (13-40); Calcium 8.7 mg/dL (8.7-10.4); Carbon Dioxide 19 mmol/L (20-30); Chloride 103 mmol/L (98-107); Magnesium 2.3 mg/dL (1.6-2.6); Potassium 4.1 mmol/L (3.5-5.1); Sodium 130 mmol/L (136-145)
[2023-12-21 07:16] LABS: Albumin 3.1 g/dL (3.2-4.8); Bilirubin, Total 1.7 mg/dL (0.2-1.0); Phosphorus 3.2 mg/dL (2.4-5.1); Total Protein 6.7 g/dL (5.7-8.2)
[2023-12-21 07:23] LABS: Glucose 109 mg/dL (74-106)
[2023-12-21 07:25] LABS: BUN/Creatinine Ratio 29.3 (10.0-20.0)
[2023-12-21 07:26] LABS: Blood Urea Nitrogen 27 mg/dL (9-23)
[2023-12-21] MEDS: IPRATROPIUM BROM 0.5 MG/2.5ML INH SOL NEB SCH (11:40)
[2023-12-21] MEDS: LEVALBUTEROL HCL 1.25 MG/3 ML NEB NEB SCH (11:44)
[2023-12-21] MEDS ORDERED: Ensure Enlive Strawberry 8oz Bottle PO SCH (12:00)
[2023-12-21] MEDS: LIDOCAINE 5% TOPICAL PATCH TOP SCH (12:35)
[2023-12-21] MEDS: ERGOCALCIFEROL 50,000 UNIT(1.25MG) CAP PO SCH (12:47)
[2023-12-21 14:30] LABS: Urine Bacteria FEW /hpf (None Seen); Urine Blood Negative /uL (Negative); Urine Clarity Clear (Clear); Urine Color Yellow (Yellow); Urine Mucus FEW (None Seen); Urine Protein, UAD 1+ (Negative); Urine Specific Gravity 1.028 (1.001-1.035); Urine Urobilinogen Normal (Negative); Urine WBC 2 /hpf (0 - 3); Urine pH 5.5 (5.0-9.0)
[2023-12-21 14:50] LABS: Amphetamine Screen, Urine Neg (NEGATIVE); Barbiturate Scree,Urine Neg (NEGATIVE); Benzodiazephine Screen, Urine Neg (NEGATIVE); Cannabinoid Screen, Urine Neg (NEGATIVE); Cocaine Screen, Urine Neg (NEGATIVE); Opiate Scree,Urine Neg (NEGATIVE); Phencyclidine Screen, Urine Neg (NEGATIVE)
[2023-12-21] MEDS: Glucerna Carbsteady SHAKE Vanilla 8oz PO SCH (18:14)
[2023-12-22] VITALS (16 sets, daily range): BP systolic 91–116; BP diastolic 51–64; PULSE 53–82; RESP 14–20; TEMP 97.8–99.6; O2SAT 92–99
[2023-12-22 06:33] LABS: Basophils # (auto) 0 10 ^3/uL (0-0.2); Basophils % (auto) 0.2 % (0.0-2.0); Eosinophils # (auto) 0 10 ^3/uL (0-0.8); Hemoglobin 7.1 g/dL (13.5-17.5); Lymphocytes # (auto) 0.4 10 ^3/uL (0.4-5.4); Monocytes # (auto) 0.7 10 ^3/uL (0-1.3)
[2023-12-22 06:36] LABS: Hematocrit 21.4 % (41.0-53.0); Lymphocytes % (auto) 5.9 % (10.0-50.0); Mean Corpuscular Hemoglobin 28.5 pg (28.0-32.0); Mean Corpuscular Hgb Conc. 33.1 g/dL (32.0-36.0); Monocytes % (auto) 9.5 % (0.0-12.0); Neutrophils # (auto) 5.8 10 ^3/uL (1.6-8.6); Neutrophils % (auto) 84.4 % (37.0-80.0); Red Blood Cells 2.49 10^6/uL (4.5-5.90); Red Cell Distribution Width 15.6 % (11.8-14.3); White Blood Cell 6.9 10^3/uL (4.4-10.8)
[2023-12-22 07:07] LABS: Alanine Aminotransferase 21 U/L (7-40); Albumin 2.9 g/dL (3.2-4.8); Alkaline Phosphatase 241 U/L (46-116); Anion Gap 7 (5-15); Aspartate Aminotransferase 39 U/L (13-40); BUN/Creatinine Ratio 29.5 (10.0-20.0); Bilirubin, Total 1.5 mg/dL (0.2-1.0); Blood Urea Nitrogen 23 mg/dL (9-23); Calcium 8.4 mg/dL (8.5-10.1); Carbon Dioxide 21 mmol/L (20-30); Chloride 104 mmol/L (98-107); Glucose 121 mg/dL (74-106); Potassium 4.3 mmol/L (3.5-5.1); Sodium 132 mmol/L (136-145); Total Protein 6.4 g/dL (5.7-8.2)
[2023-12-22] MEDS ORDERED: CEPH250C PO (08:12)
[2023-12-22] MEDS ORDERED: LIDO5DIS21 TOP ×2 (08:12→17:45)
[2023-12-22] MEDS ORDERED: APIX5TAB PO (08:12)
[2023-12-22] MEDS ORDERED: ERGO1CAP23 PO (08:12)
[2023-12-22 09:38] LABS: Hepatitis B Surface Antigen Negative (Negative)
[2023-12-22 10:06] LABS: Hepatitis C Antibody Reactive (Negative)
[2023-12-23] VITALS (9 sets, daily range): BP systolic 92–145; BP diastolic 52–68; PULSE 62–83; RESP 18–20; TEMP 97.5–99.7; O2SAT 91–99
[2023-12-23 07:04] LABS: Hemoglobin 8.1 g/dL (13.5-17.5)
[2023-12-23 07:07] LABS: Hematocrit 24.4 % (41.0-53.0)
[2023-12-23] MEDS ORDERED: FER325T PO (08:38)
[2023-12-23] MEDS ORDERED: LIDO5DIS21 TOP (15:30)
[2023-12-23] MEDS ORDERED: APIX5TAB PO (15:30)
== END 2023-12-23 15:00 | disposition home health service (06) | DRG 435 ==
LOC: ER 19:46 → OVERFLOW 12-20 06:50 → ER 12-20 06:50 → WEST WING 12-20 22:20
PROVIDERS: ADMIT Internal Medicine Pulmonary Disease; ATTEND Internal Medicine Pulmonary Disease
PROC: 30233N1 Transfusion of Nonautologous Red Blood Cells into Peripheral Vein, Percutaneous Approach (ICD-10-PCS; principal; 2023-12-22)
DX: C25.9 Malignant neoplasm of pancreas, unspecified (principal); G93.41 Metabolic encephalopathy; I26.99 Other pulmonary embolism without acute cor pulmonale; E87.1 Hypo-osmolality and hyponatremia; M48.54XA Collapsed vertebra, not elsewhere classified, thoracic region, initial encounter for fracture; D68.69 Other thrombophilia; C78.7 Secondary malignant neoplasm of liver and intrahepatic bile duct; E44.1 Mild protein-calorie malnutrition; D63.0 Anemia in neoplastic disease; E86.0 Dehydration; E11.9 Type 2 diabetes mellitus without complications; I48.0 Paroxysmal atrial fibrillation; I10 Essential (primary) hypertension; Z68.21 Body mass index [BMI] 21.0-21.9, adult; Z90.49 Acquired absence of other specified parts of digestive tract; Z88.1 Allergy status to other antibiotic agents; Z95.0 Presence of cardiac pacemaker; Z74.01 Bed confinement status; Z85.038 Personal history of other malignant neoplasm of large intestine
CPT/HCPCS: 36415; 71045; 71260; 72128; 72131; 74177; 80053; 80061; 80307; 81001; 82306; 82607; 82962; 83036; 83605; 83690; 83735; 83880; 84100; 84443; 84484; 85014; 85018; 85025; 85610; 86803; 86850; 86900; 86901; 86920; 87040; 87081; 87340; 93306; 94640; 96365; 96366; 96367; 96372; 99291; G0378; J1815; J2543